=== PATIENT | female | born 1960 | race Caucasian/White ===

== ENCOUNTER 2023-03-11 14:29 | Inpatient (IN) | payer BC, OTHER ==
[2023-03-11 15:11] LABS: #Eosinphils 0.1 10x3/uL (0.0-0.5); #Monocytes 1.1 10x3/uL (0.0-1.1); #Neutrophils 9.5 10x3/uL (1.5-8.4); %Basophils 0.3 % (0.0-2.0); %Eosinophils 0.5 % (0.0-6.0); %Lymphocytes 7.8 % (18.0-47.0); %Monocytes 9.1 % (0.0-10.0); %Neutrophils 81.9 % (40.0-75.0); Hemoglobin 8.8 g/dL (12.0-15.5); Mean Corpuscular HGB CONC 32.6 g/dL (32.0-36.0); Mean Corpuscular Hemoglobin 29.5 pg (27.0-33.0); Mean Corpuscular Volume 90.6 fl (81.6-98.3); Mean Platelet Volume 10.5 fl (7.4-10.4); Platelet Count 280 10x3/uL (150-450); RBC Distribution Width 14.3 % (11.5-14.5); Red Blood Cell (RBC) Count 2.98 10x6/uL (3.90-5.03); White Blood Cell (WBC) Count 11.6 10x3/uL (3.5-10.5)
[2023-03-11 15:14] LABS: ALT (SGPT) 10 U/L (8-55); AST (SGOT) 29 U/L (5-34); Alkaline Phosphatase 65 U/L (40-110); Anion Gap 17 mmol/L (10-20); BUN (Urea Nitrogen) 16 mg/dL (9.8-20.1); Bilirubin, Total 0.7 mg/dL (0.2-1.2); Calc. Creatinine Clearance 0 mL/min (70-130); Carbon Dioxide 28 mmol/L (23-31); Chloride 96 mmol/L (98-107); Estimated GFR 65; Globulin 2.3 g/dL (2.4-3.5); Glucose 101 mg/dL (80-115); Protein, Total 5.3 g/dL (5.8-8.1); Sodium 138 mmol/L (136-145)
[2023-03-11] MEDS ORDERED: CEFAZOLIN 1 GM VIAL ONE (16:39)
[2023-03-11] MEDS ORDERED: Acetaminophen 325 MG TAB PO PRN (19:28)
[2023-03-11] MEDS ORDERED: Ondansetron PF 4 MG/2 ML Vial IVP PRN (19:28)
[2023-03-11] MEDS ORDERED: NS 0.9% w/ 40 MEQ KCL 1,000 ML IV SCH (19:30)
[2023-03-11] MEDS ORDERED: Electrolyte Replacement Protocol FS SCH (19:30)
[2023-03-11] MEDS ORDERED: Potassium Chloride 20 MEQ TAB PO SCH (20:30)
[2023-03-11] MEDS ORDERED: Potassium Chloride 20 MEQ TAB ONE (22:45)
[2023-03-11] MEDS ORDERED: NS 0.9% w/ 40 MEQ KCL 1,000 ML IV ONE (22:46)
[2023-03-11] MEDS: Nystatin Powder 15 GM BOT TOP SCH (23:00)
[2023-03-11] MEDS: Cefepime 2 GM in Sodium Chloride 0.9% 100 ML IVPB SCH (23:40)
[2023-03-12 05:50] LABS: #Basophils 0.1 10x3/uL (0.0-0.2); #Eosinphils 0.2 10x3/uL (0.0-0.5); #Monocytes 0.7 10x3/uL (0.0-1.1); #Neutrophils 6.2 10x3/uL (1.5-8.4); %Basophils 0.6 % (0.0-2.0); %Eosinophils 2.4 % (0.0-6.0); %Lymphocytes 14.7 % (18.0-47.0); %Monocytes 8.4 % (0.0-10.0); %Neutrophils 73.4 % (40.0-75.0); Hemoglobin 9.5 g/dL (12.0-15.5); Mean Corpuscular HGB CONC 31.8 g/dL (32.0-36.0); Mean Corpuscular Hemoglobin 29.5 pg (27.0-33.0); Mean Corpuscular Volume 92.9 fl (81.6-98.3); Mean Platelet Volume 10.2 fl (7.4-10.4); Platelet Count 249 10x3/uL (150-450); RBC Distribution Width 14.5 % (11.5-14.5); Red Blood Cell (RBC) Count 3.22 10x6/uL (3.90-5.03); White Blood Cell (WBC) Count 8.4 10x3/uL (3.5-10.5)
[2023-03-12 05:56] LABS: Anion Gap 17 mmol/L (10-20); BUN (Urea Nitrogen) 13 mg/dL (9.8-20.1); Calc. Creatinine Clearance 0 mL/min (70-130); Calcium 8.3 mg/dL (7.8-10.44); Carbon Dioxide 26 mmol/L (23-31); Chloride 102 mmol/L (98-107); Estimated GFR 85; Glucose 80 mg/dL (80-115); Magnesium 2.1 mg/dL (1.6-2.6); Potassium 3.8 mmol/L (3.5-5.1); Sodium 141 mmol/L (136-145)
[2023-03-12 06:13] LABS: Iron 26 ug/dL (50-170); Iron Binding Capacity, Total 126 mcg/dL (265-497)
[2023-03-12 06:15] LABS: Ferritin 606.11 ng/mL (10-291); Thyroid Stimulating Hormone 1.5122 uIU/mL (0.35-4.94)
[2023-03-12] MEDS: Nystatin Powder 15 GM BOT TOP SCH (09:00)
[2023-03-12] MEDS ORDERED: Cefepime 2 GM VIAL ONE (09:30)
[2023-03-12] MEDS: Cefepime 2 GM in Sodium Chloride 0.9% 100 ML IVPB SCH ×2 (09:45→21:54)
[2023-03-12] MEDS ORDERED: VANCOMYCIN 1.75 GM/350 ML BAG 1.75 GM in Premix Bag 1 BAG IVPB SCH (23:00)
[2023-03-13 04:34] LABS: #Eosinphils 0.2 10x3/uL (0.0-0.5); #Monocytes 0.7 10x3/uL (0.0-1.1); #Neutrophils 4.8 10x3/uL (1.5-8.4); %Basophils 0.4 % (0.0-2.0); %Eosinophils 2.6 % (0.0-6.0); %Monocytes 9.5 % (0.0-10.0); %Neutrophils 71.2 % (40.0-75.0); Hemoglobin 8.5 g/dL (12.0-15.5); Mean Corpuscular Hemoglobin 29.3 pg (27.0-33.0); Mean Corpuscular Volume 91.7 fl (81.6-98.3); Mean Platelet Volume 10.4 fl (7.4-10.4); Platelet Count 236 10x3/uL (150-450); RBC Distribution Width 14.5 % (11.5-14.5); White Blood Cell (WBC) Count 6.8 10x3/uL (3.5-10.5)
[2023-03-13 04:44] LABS: Anion Gap 14 mmol/L (10-20); BUN (Urea Nitrogen) 10 mg/dL (9.8-20.1); Calc. Creatinine Clearance 137 mL/min (70-130); Carbon Dioxide 27 mmol/L (23-31); Chloride 104 mmol/L (98-107); Sodium 141 mmol/L (136-145)
[2023-03-13 04:45] LABS: ALT (SGPT) 7 U/L (8-55); AST (SGOT) 15 U/L (5-34); Albumin 2.3 g/dL (3.4-4.8); Alkaline Phosphatase 50 U/L (40-110); Bilirubin, Total 0.3 mg/dL (0.2-1.2); Calcium 7.9 mg/dL (7.8-10.44); Estimated GFR 97; Globulin 2.4 g/dL (2.4-3.5); Glucose 91 mg/dL (80-115); Protein, Total 4.7 g/dL (5.8-8.1)
[2023-03-13] MEDS ORDERED: Fluconazole In NaCl,Iso-Osm 100 MG in Admixture Fee 1 EACH IVPB SCH (09:00)
[2023-03-13] MEDS ORDERED: Fluconazole 100 MG TAB PO SCH (09:00)
[2023-03-13] MEDS: Cefepime 2 GM in Sodium Chloride 0.9% 100 ML IVPB SCH ×2 (09:07→23:36)
[2023-03-13] MEDS: Nystatin Powder 15 GM BOT TOP SCH (10:07)
[2023-03-13] MEDS: Vancomycin HCl 1 GM in Sodium Chloride 0.9% 250 ML 250 ML IVPB SCH ×2 (11:08→23:35)
[2023-03-13] MEDS: traMADol HCl 50 MG TAB PO PRN (11:35)
[2023-03-13] MEDS ORDERED: Nystatin Powder 15 GM BOT TOP PRN (14:31)
[2023-03-14] MEDS: Nystatin Powder 15 GM BOT TOP SCH ×3 (00:36→13:35)
[2023-03-14 05:02] LABS: #Eosinphils 0.3 10x3/uL (0.0-0.5); #Monocytes 0.8 10x3/uL (0.0-1.1); #Neutrophils 4.2 10x3/uL (1.5-8.4); %Basophils 0.4 % (0.0-2.0); %Eosinophils 4.2 % (0.0-6.0); %Lymphocytes 20.2 % (18.0-47.0); %Monocytes 11.2 % (0.0-10.0); %Neutrophils 63.7 % (40.0-75.0); Hemoglobin 8.5 g/dL (12.0-15.5); Mean Corpuscular HGB CONC 31.1 g/dL (32.0-36.0); Mean Corpuscular Hemoglobin 28.9 pg (27.0-33.0); Mean Corpuscular Volume 92.9 fl (81.6-98.3); Platelet Count 222 10x3/uL (150-450); RBC Distribution Width 14.4 % (11.5-14.5); Red Blood Cell (RBC) Count 2.94 10x6/uL (3.90-5.03); White Blood Cell (WBC) Count 6.7 10x3/uL (3.5-10.5)
[2023-03-14 05:10] LABS: ALT (SGPT) Less than 6 U/L (8-55); AST (SGOT) 14 U/L (5-34); Albumin 2.3 g/dL (3.4-4.8); Alkaline Phosphatase 46 U/L (40-110); Anion Gap 11 mmol/L (10-20); BUN (Urea Nitrogen) 8 mg/dL (9.8-20.1); Bilirubin, Total 0.2 mg/dL (0.2-1.2); Calc. Creatinine Clearance 147 mL/min (70-130); Calcium 7.8 mg/dL (7.8-10.44); Carbon Dioxide 30 mmol/L (23-31); Chloride 103 mmol/L (98-107); Estimated GFR 99; Globulin 2.2 g/dL (2.4-3.5); Glucose 95 mg/dL (80-115); Potassium 4.1 mmol/L (3.5-5.1); Protein, Total 4.5 g/dL (5.8-8.1); Sodium 140 mmol/L (136-145)
[2023-03-14] MEDS ORDERED: Lactated Ringer's 1,000 ML IV SCH (07:00)
[2023-03-14] MEDS: Cefepime 2 GM in Sodium Chloride 0.9% 100 ML IVPB SCH (09:06)
[2023-03-14] MEDS ORDERED: Fentanyl 100 MCG/2 ML VIAL ONE ×2 (09:39→10:12)
[2023-03-14] MEDS ORDERED: PROPOFOL 20 ML ONE (09:39)
[2023-03-14] MEDS ORDERED: Rocuronium Bromide 10 MG/ML (10ML VIAL) ONE (10:11)
[2023-03-14] MEDS ORDERED: Ondansetron PF 4 MG/2 ML Vial ONE (10:11)
[2023-03-14] MEDS ORDERED: PHENYLEPHRINE-NS 100 MCG/ML 10 ML SYRINGE ONE (10:20)
[2023-03-14] MEDS: Vancomycin HCl 1 GM in Sodium Chloride 0.9% 250 ML 250 ML IVPB SCH (13:00)
[2023-03-14 13:22] LABS: Vancomycin, Trough 23.7 ug/mL
[2023-03-14] MEDS: traMADol HCl 50 MG TAB PO PRN ×2 (13:33→20:35)
[2023-03-14] MEDS ORDERED: HYDROcodone/Acetaminophen 5/325 mg Tablet PO SCH (15:00)
[2023-03-14] MEDS: Gabapentin 100 MG CAP PO SCH (15:13)
[2023-03-14] MEDS: Cephalexin 500 MG CAP PO SCH (19:55)
[2023-03-14] MEDS: Gabapentin 300 MG CAP PO SCH (20:34)
[2023-03-15] MEDS: Cephalexin 500 MG CAP PO SCH ×5 (00:06→23:31)
[2023-03-15] MEDS: Nystatin Powder 15 GM BOT TOP SCH ×3 (00:07→21:52)
[2023-03-15 05:36] LABS: #Monocytes 0.5 10x3/uL (0.0-1.1); %Basophils 0.1 % (0.0-2.0); %Eosinophils 0.1 % (0.0-6.0); %Lymphocytes 12.1 % (18.0-47.0); %Monocytes 6.9 % (0.0-10.0); Mean Corpuscular HGB CONC 31.8 g/dL (32.0-36.0); Mean Corpuscular Hemoglobin 28.7 pg (27.0-33.0); Mean Corpuscular Volume 90.1 fl (81.6-98.3); Mean Platelet Volume 10.7 fl (7.4-10.4); Platelet Count 257 10x3/uL (150-450); RBC Distribution Width 13.8 % (11.5-14.5); Red Blood Cell (RBC) Count 3.14 10x6/uL (3.90-5.03); White Blood Cell (WBC) Count 7.5 10x3/uL (3.5-10.5)
[2023-03-15 05:50] LABS: ALT (SGPT) Less than 6 U/L (8-55); AST (SGOT) 12 U/L (5-34); Albumin 2.4 g/dL (3.4-4.8); Alkaline Phosphatase 46 U/L (40-110); Anion Gap 14 mmol/L (10-20); BUN (Urea Nitrogen) 10 mg/dL (9.8-20.1); Bilirubin, Total 0.2 mg/dL (0.2-1.2); Calc. Creatinine Clearance 154 mL/min (70-130); Calcium 7.9 mg/dL (7.8-10.44); Carbon Dioxide 28 mmol/L (23-31); Chloride 99 mmol/L (98-107); Estimated GFR 100; Globulin 2.3 g/dL (2.4-3.5); Glucose 95 mg/dL (80-115); Potassium 4.5 mmol/L (3.5-5.1); Protein, Total 4.7 g/dL (5.8-8.1); Sodium 136 mmol/L (136-145)
[2023-03-15] MEDS: Gabapentin 100 MG CAP PO SCH ×2 (09:57→16:57)
[2023-03-15 12:16] LABS: Hemoglobin A1c 5.4 % (4.0-6.0)
[2023-03-15] MEDS ORDERED: Ipratropium/Albuterol 3 ML NEB NEB PRN (13:16)
[2023-03-15] MEDS: Gabapentin 300 MG CAP PO SCH (21:51)
[2023-03-16] MEDS: Cephalexin 500 MG CAP PO SCH (05:37)
[2023-03-16] MEDS: traMADol HCl 50 MG TAB PO PRN (05:51)
[2023-03-16 05:52] LABS: #Eosinphils 0.2 10x3/uL (0.0-0.5); #Monocytes 0.6 10x3/uL (0.0-1.1); #Neutrophils 4.6 10x3/uL (1.5-8.4); %Basophils 0.5 % (0.0-2.0); %Lymphocytes 18.2 % (18.0-47.0); %Monocytes 9.3 % (0.0-10.0); %Neutrophils 68.5 % (40.0-75.0); Hemoglobin 9.1 g/dL (12.0-15.5); Mean Corpuscular HGB CONC 31.6 g/dL (32.0-36.0); Mean Corpuscular Hemoglobin 28.8 pg (27.0-33.0); Mean Corpuscular Volume 91.1 fl (81.6-98.3); Mean Platelet Volume 10.3 fl (7.4-10.4); Platelet Count 253 10x3/uL (150-450); RBC Distribution Width 14.2 % (11.5-14.5); Red Blood Cell (RBC) Count 3.16 10x6/uL (3.90-5.03); White Blood Cell (WBC) Count 6.7 10x3/uL (3.5-10.5)
[2023-03-16 05:57] LABS: ALT (SGPT) Less than 6 U/L (8-55); AST (SGOT) 11 U/L (5-34); Albumin 2.4 g/dL (3.4-4.8); Alkaline Phosphatase 45 U/L (40-110); Anion Gap 10 mmol/L (10-20); BUN (Urea Nitrogen) 11 mg/dL (9.8-20.1); Bilirubin, Total 0.2 mg/dL (0.2-1.2); Calc. Creatinine Clearance 148 mL/min (70-130); Carbon Dioxide 31 mmol/L (23-31); Chloride 100 mmol/L (98-107); Estimated GFR 98; Globulin 2.2 g/dL (2.4-3.5); Glucose 89 mg/dL (80-115); Magnesium 1.9 mg/dL (1.6-2.6); Phosphorus 2.1 mg/dL (2.3-4.7); Potassium 4.1 mmol/L (3.5-5.1); Protein, Total 4.6 g/dL (5.8-8.1); Sodium 137 mmol/L (136-145)
[2023-03-16] MEDS: Ferrous Sulfate 325 MG TAB PO SCH (08:35)
[2023-03-16] MEDS: Gabapentin 100 MG CAP PO SCH ×2 (08:35→15:32)
[2023-03-16] MEDS: Nystatin Powder 15 GM BOT TOP SCH ×2 (08:36→21:10)
[2023-03-16] MEDS ORDERED: Magnesium 2 GM/50 ML(in water) 2 GM in Premix Bag 1 BAG IVPB SCH (09:00)
[2023-03-16] MEDS: Cefdinir 300 MG CAP PO SCH ×2 (10:01→21:09)
[2023-03-16] MEDS: Gabapentin 300 MG CAP PO SCH (21:09)
[2023-03-16] MEDS: Polyethylene Glycol 3350 17 GM Packet PO SCH (21:10)
[2023-03-17 04:38] LABS: #Eosinphils 0.2 10x3/uL (0.0-0.5); #Monocytes 0.7 10x3/uL (0.0-1.1); #Neutrophils 3.8 10x3/uL (1.5-8.4); %Basophils 0.3 % (0.0-2.0); %Eosinophils 2.9 % (0.0-6.0); %Lymphocytes 23.9 % (18.0-47.0); %Monocytes 11.5 % (0.0-10.0); %Neutrophils 60.4 % (40.0-75.0); Hemoglobin 9.5 g/dL (12.0-15.5); Mean Corpuscular HGB CONC 31.9 g/dL (32.0-36.0); Mean Corpuscular Volume 90.9 fl (81.6-98.3); Mean Platelet Volume 10.5 fl (7.4-10.4); Platelet Count 266 10x3/uL (150-450); RBC Distribution Width 14.4 % (11.5-14.5); Red Blood Cell (RBC) Count 3.28 10x6/uL (3.90-5.03); White Blood Cell (WBC) Count 6.2 10x3/uL (3.5-10.5)
[2023-03-17 05:03] LABS: ALT (SGPT) Less than 6 U/L (8-55); AST (SGOT) 12 U/L (5-34); Albumin 2.3 g/dL (3.4-4.8); Alkaline Phosphatase 52 U/L (40-110); Anion Gap 11 mmol/L (10-20); BUN (Urea Nitrogen) 8 mg/dL (9.8-20.1); Bilirubin, Total 0.2 mg/dL (0.2-1.2); Calc. Creatinine Clearance 162 mL/min (70-130); Carbon Dioxide 30 mmol/L (23-31); Chloride 101 mmol/L (98-107); Estimated GFR 100; Globulin 2.2 g/dL (2.4-3.5); Glucose 95 mg/dL (80-115); Magnesium 1.9 mg/dL (1.6-2.6); Potassium 4.2 mmol/L (3.5-5.1); Protein, Total 4.5 g/dL (5.8-8.1); Sodium 138 mmol/L (136-145)
[2023-03-17] MEDS: Ferrous Sulfate 325 MG TAB PO SCH (08:19)
[2023-03-17] MEDS: Polyethylene Glycol 3350 17 GM Packet PO SCH (08:19)
[2023-03-17] MEDS: Gabapentin 100 MG CAP PO SCH ×2 (08:19→15:42)
[2023-03-17] MEDS: Cefdinir 300 MG CAP PO SCH ×2 (08:19→21:21)
[2023-03-17] MEDS: Nystatin Powder 15 GM BOT TOP SCH ×2 (08:20→21:23)
[2023-03-17] MEDS ORDERED: Magnesium 2 GM/50 ML(in water) 2 GM in Premix Bag 1 BAG IVPB SCH (09:00)
[2023-03-17] MEDS ORDERED: Ketorolac Tromethamine 30 MG/ML VIAL IVP SCH (13:45)
[2023-03-17] MEDS: Gabapentin 300 MG CAP PO SCH (21:20)
[2023-03-18 05:01] LABS: #Eosinphils 0.2 10x3/uL (0.0-0.5); #Monocytes 0.8 10x3/uL (0.0-1.1); #Neutrophils 4.4 10x3/uL (1.5-8.4); %Basophils 0.4 % (0.0-2.0); %Eosinophils 2.7 % (0.0-6.0); %Lymphocytes 22.7 % (18.0-47.0); %Neutrophils 62.1 % (40.0-75.0); Hemoglobin 9.4 g/dL (12.0-15.5); Mean Corpuscular HGB CONC 32.1 g/dL (32.0-36.0); Mean Corpuscular Hemoglobin 29.1 pg (27.0-33.0); Mean Corpuscular Volume 90.7 fl (81.6-98.3); Mean Platelet Volume 10.3 fl (7.4-10.4); Platelet Count 245 10x3/uL (150-450); RBC Distribution Width 14.6 % (11.5-14.5); Red Blood Cell (RBC) Count 3.23 10x6/uL (3.90-5.03); White Blood Cell (WBC) Count 7.1 10x3/uL (3.5-10.5)
[2023-03-18 05:08] LABS: ALT (SGPT) 9 U/L (8-55); AST (SGOT) 18 U/L (5-34); Albumin 2.4 g/dL (3.4-4.8); Alkaline Phosphatase 61 U/L (40-110); Anion Gap 12 mmol/L (10-20); BUN (Urea Nitrogen) 7 mg/dL (9.8-20.1); Bilirubin, Total 0.2 mg/dL (0.2-1.2); Calc. Creatinine Clearance 157 mL/min (70-130); Calcium 8.2 mg/dL (7.8-10.44); Carbon Dioxide 30 mmol/L (23-31); Chloride 101 mmol/L (98-107); Estimated GFR 99; Globulin 2.3 g/dL (2.4-3.5); Glucose 101 mg/dL (80-115); Potassium 4.6 mmol/L (3.5-5.1); Protein, Total 4.7 g/dL (5.8-8.1); Sodium 138 mmol/L (136-145)
[2023-03-18] MEDS: Cefdinir 300 MG CAP PO SCH ×2 (08:57→20:22)
[2023-03-18] MEDS: Gabapentin 100 MG CAP PO SCH ×2 (08:57→15:05)
[2023-03-18] MEDS: Ferrous Sulfate 325 MG TAB PO SCH (08:57)
[2023-03-18] MEDS: Nystatin Powder 15 GM BOT TOP SCH ×2 (08:59→22:26)
[2023-03-18] MEDS ORDERED: Magnesium 2 GM/50 ML(in water) 2 GM in Premix Bag 1 BAG IVPB SCH (09:00)
[2023-03-18] MEDS: traMADol HCl 50 MG TAB PO PRN ×2 (15:05→20:26)
[2023-03-18] MEDS: Gabapentin 300 MG CAP PO SCH (20:22)
[2023-03-18] MEDS: Senokot S 8.6-50 MG TAB PO SCH (20:24)
[2023-03-19 05:07] LABS: Magnesium 2.2 mg/dL (1.6-2.6)
[2023-03-19] MEDS: Senokot S 8.6-50 MG TAB PO SCH ×2 (09:06→21:55)
[2023-03-19] MEDS: traMADol HCl 50 MG TAB PO PRN (09:06)
[2023-03-19] MEDS: Gabapentin 100 MG CAP PO SCH ×2 (09:06→15:56)
[2023-03-19] MEDS: Cefdinir 300 MG CAP PO SCH ×2 (09:06→21:54)
[2023-03-19] MEDS: Ferrous Sulfate 325 MG TAB PO SCH (09:06)
[2023-03-19] MEDS: Nystatin Powder 15 GM BOT TOP SCH ×2 (09:55→21:54)
[2023-03-19] MEDS: Morphine 2 MG/ML VIAL SLOW IVP PRN (13:55)
[2023-03-19] MEDS: Gabapentin 300 MG CAP PO SCH (21:53)
[2023-03-20 04:51] LABS: Anion Gap 11 mmol/L (10-20); BUN (Urea Nitrogen) 11 mg/dL (9.8-20.1); Calc. Creatinine Clearance 160 mL/min (70-130); Carbon Dioxide 31 mmol/L (23-31); Chloride 100 mmol/L (98-107); Estimated GFR 100; Glucose 101 mg/dL (80-115); Potassium 4.5 mmol/L (3.5-5.1); Sodium 137 mmol/L (136-145)
[2023-03-20 05:18] LABS: #Eosinphils 0.1 10x3/uL (0.0-0.5); #Monocytes 0.9 10x3/uL (0.0-1.1); #Neutrophils 4.1 10x3/uL (1.5-8.4); %Basophils 0.5 % (0.0-2.0); %Lymphocytes 21.6 % (18.0-47.0); %Monocytes 13.2 % (0.0-10.0); %Neutrophils 62.1 % (40.0-75.0); Hemoglobin 8.4 g/dL (12.0-15.5); Mean Corpuscular HGB CONC 31.9 g/dL (32.0-36.0); Mean Corpuscular Hemoglobin 28.8 pg (27.0-33.0); Mean Corpuscular Volume 90.1 fl (81.6-98.3); Mean Platelet Volume 10.5 fl (7.4-10.4); Platelet Count 209 10x3/uL (150-450); RBC Distribution Width 15.2 % (11.5-14.5); Red Blood Cell (RBC) Count 2.92 10x6/uL (3.90-5.03); White Blood Cell (WBC) Count 6.5 10x3/uL (3.5-10.5)
[2023-03-20] MEDS: Gabapentin 100 MG CAP PO SCH ×2 (07:54→15:40)
[2023-03-20] MEDS: Ferrous Sulfate 325 MG TAB PO SCH (07:54)
[2023-03-20] MEDS: Cefdinir 300 MG CAP PO SCH ×2 (07:54→20:52)
[2023-03-20] MEDS: Nystatin Powder 15 GM BOT TOP SCH ×2 (07:55→20:53)
[2023-03-20] MEDS: Senokot S 8.6-50 MG TAB PO SCH ×2 (07:55→20:58)
[2023-03-20] MEDS: Gabapentin 300 MG CAP PO SCH (20:52)
[2023-03-21 03:50] LABS: #Eosinphils 0.2 10x3/uL (0.0-0.5); #Monocytes 0.9 10x3/uL (0.0-1.1); #Neutrophils 4.9 10x3/uL (1.5-8.4); %Basophils 0.4 % (0.0-2.0); %Eosinophils 2.2 % (0.0-6.0); %Lymphocytes 18.9 % (18.0-47.0); %Monocytes 11.6 % (0.0-10.0); %Neutrophils 66.4 % (40.0-75.0); Hemoglobin 8.8 g/dL (12.0-15.5); Mean Corpuscular HGB CONC 31.9 g/dL (32.0-36.0); Mean Corpuscular Hemoglobin 28.9 pg (27.0-33.0); Mean Corpuscular Volume 90.8 fl (81.6-98.3); Mean Platelet Volume 10.5 fl (7.4-10.4); Platelet Count 226 10x3/uL (150-450); RBC Distribution Width 15.1 % (11.5-14.5); Red Blood Cell (RBC) Count 3.04 10x6/uL (3.90-5.03); White Blood Cell (WBC) Count 7.4 10x3/uL (3.5-10.5)
[2023-03-21 03:55] LABS: Anion Gap 11 mmol/L (10-20); BUN (Urea Nitrogen) 8 mg/dL (9.8-20.1); Calc. Creatinine Clearance 158 mL/min (70-130); Calcium 8.3 mg/dL (7.8-10.44); Carbon Dioxide 31 mmol/L (23-31); Chloride 100 mmol/L (98-107); Estimated GFR 100; Glucose 97 mg/dL (80-115); Potassium 4.1 mmol/L (3.5-5.1); Sodium 138 mmol/L (136-145)
[2023-03-21] MEDS: Cefdinir 300 MG CAP PO SCH ×2 (09:59→22:07)
[2023-03-21] MEDS: Gabapentin 100 MG CAP PO SCH ×2 (09:59→17:07)
[2023-03-21] MEDS: Ferrous Sulfate 325 MG TAB PO SCH (09:59)
[2023-03-21] MEDS: Senokot S 8.6-50 MG TAB PO SCH ×2 (10:02→22:07)
[2023-03-21] MEDS: Nystatin Powder 15 GM BOT TOP SCH ×2 (10:17→22:07)
[2023-03-21] MEDS: Morphine 2 MG/ML VIAL SLOW IVP PRN (11:26)
[2023-03-21] MEDS: Gabapentin 300 MG CAP PO SCH (22:06)
[2023-03-22 04:27] LABS: Anion Gap 10 mmol/L (10-20); BUN (Urea Nitrogen) 11 mg/dL (9.8-20.1); Calc. Creatinine Clearance 163 mL/min (70-130); Calcium 8.4 mg/dL (7.8-10.44); Carbon Dioxide 30 mmol/L (23-31); Chloride 101 mmol/L (98-107); Estimated GFR 100; Glucose 96 mg/dL (80-115); Potassium 4.4 mmol/L (3.5-5.1); Sodium 137 mmol/L (136-145)
[2023-03-22 04:39] LABS: #Eosinphils 0.2 10x3/uL (0.0-0.5); #Monocytes 0.9 10x3/uL (0.0-1.1); #Neutrophils 4.6 10x3/uL (1.5-8.4); %Basophils 0.3 % (0.0-2.0); %Lymphocytes 19.9 % (18.0-47.0); %Monocytes 12.8 % (0.0-10.0); %Neutrophils 63.6 % (40.0-75.0); Hemoglobin 8.7 g/dL (12.0-15.5); Mean Corpuscular Hemoglobin 29.2 pg (27.0-33.0); Mean Corpuscular Volume 91.3 fl (81.6-98.3); Mean Platelet Volume 10.7 fl (7.4-10.4); Platelet Count 213 10x3/uL (150-450); Red Blood Cell (RBC) Count 2.98 10x6/uL (3.90-5.03); White Blood Cell (WBC) Count 7.2 10x3/uL (3.5-10.5)
[2023-03-22 05:53] VITALS: BMI 52.7
[2023-03-22] MEDS: Gabapentin 100 MG CAP PO SCH ×2 (10:00→15:50)
[2023-03-22] MEDS: Cefdinir 300 MG CAP PO SCH ×2 (10:00→21:49)
[2023-03-22] MEDS: Ferrous Sulfate 325 MG TAB PO SCH (10:00)
[2023-03-22] MEDS: Senokot S 8.6-50 MG TAB PO SCH ×2 (10:01→21:49)
[2023-03-22] MEDS: Nystatin Powder 15 GM BOT TOP SCH ×2 (10:01→21:49)
[2023-03-22] MEDS: Gabapentin 300 MG CAP PO SCH (21:49)
[2023-03-23 03:50] LABS: Anion Gap 11 mmol/L (10-20); BUN (Urea Nitrogen) 20 mg/dL (9.8-20.1); Calc. Creatinine Clearance 150 mL/min (70-130); Calcium 8.7 mg/dL (7.8-10.44); Carbon Dioxide 31 mmol/L (23-31); Chloride 100 mmol/L (98-107); Estimated GFR 98; Glucose 99 mg/dL (80-115); Potassium 4.3 mmol/L (3.5-5.1); Sodium 138 mmol/L (136-145)
[2023-03-23 03:56] LABS: #Eosinphils 0.2 10x3/uL (0.0-0.5); #Monocytes 0.9 10x3/uL (0.0-1.1); #Neutrophils 4.8 10x3/uL (1.5-8.4); %Basophils 0.3 % (0.0-2.0); %Eosinophils 2.8 % (0.0-6.0); %Lymphocytes 19.8 % (18.0-47.0); %Monocytes 11.9 % (0.0-10.0); %Neutrophils 64.7 % (40.0-75.0); Hemoglobin 8.7 g/dL (12.0-15.5); Mean Corpuscular HGB CONC 31.9 g/dL (32.0-36.0); Mean Corpuscular Hemoglobin 28.9 pg (27.0-33.0); Mean Corpuscular Volume 90.7 fl (81.6-98.3); Mean Platelet Volume 10.5 fl (7.4-10.4); Platelet Count 226 10x3/uL (150-450); Red Blood Cell (RBC) Count 3.01 10x6/uL (3.90-5.03); White Blood Cell (WBC) Count 7.4 10x3/uL (3.5-10.5)
[2023-03-23] MEDS: Gabapentin 100 MG CAP PO SCH ×2 (08:58→17:27)
[2023-03-23] MEDS: Cefdinir 300 MG CAP PO SCH ×2 (08:58→21:17)
[2023-03-23] MEDS: Ferrous Sulfate 325 MG TAB PO SCH (08:59)
[2023-03-23] MEDS: Senokot S 8.6-50 MG TAB PO SCH (09:00)
[2023-03-23] MEDS: Nystatin Powder 15 GM BOT TOP SCH ×2 (09:13→21:18)
[2023-03-23] MEDS: traMADol HCl 50 MG TAB PO PRN (13:07)
[2023-03-23] MEDS: Gabapentin 300 MG CAP PO SCH (21:17)
[2023-03-24 04:04] LABS: #Eosinphils 0.2 10x3/uL (0.0-0.5); #Monocytes 0.8 10x3/uL (0.0-1.1); #Neutrophils 4.1 10x3/uL (1.5-8.4); %Basophils 0.5 % (0.0-2.0); %Eosinophils 3.1 % (0.0-6.0); %Lymphocytes 21.2 % (18.0-47.0); %Monocytes 11.7 % (0.0-10.0); Hemoglobin 7.8 g/dL (12.0-15.5); Mean Corpuscular Volume 90.7 fl (81.6-98.3); Mean Platelet Volume 10.8 fl (7.4-10.4); Platelet Count 228 10x3/uL (150-450); RBC Distribution Width 15.1 % (11.5-14.5); Red Blood Cell (RBC) Count 2.69 10x6/uL (3.90-5.03); White Blood Cell (WBC) Count 6.5 10x3/uL (3.5-10.5)
[2023-03-24 04:06] LABS: Anion Gap 11 mmol/L (10-20); BUN (Urea Nitrogen) 18 mg/dL (9.8-20.1); Calc. Creatinine Clearance 150 mL/min (70-130); Calcium 8.6 mg/dL (7.8-10.44); Carbon Dioxide 30 mmol/L (23-31); Chloride 100 mmol/L (98-107); Estimated GFR 98; Glucose 94 mg/dL (80-115); Potassium 4.2 mmol/L (3.5-5.1); Sodium 137 mmol/L (136-145)
[2023-03-24] MEDS: Gabapentin 100 MG CAP PO SCH (08:37)
[2023-03-24] MEDS: Cefdinir 300 MG CAP PO SCH (08:37)
[2023-03-24] MEDS: Nystatin Powder 15 GM BOT TOP SCH (08:37)
[2023-03-24] MEDS: Ferrous Sulfate 325 MG TAB PO SCH (08:37)
[2023-03-24 12:13] VITALS: BP 110/51; TEMP 98.1
[2023-03-24] MEDS: Morphine 2 MG/ML VIAL SLOW IVP PRN (13:30)
== END 2023-03-24 15:57 | DRG 579 ==
LOC: CSHERS 14:29 → CSHERHOLD 21:27 → CSHTELE 03-12 10:34
PROVIDERS: ADMIT Family Medicine; ATTEND Internal Medicine
PROC: 0Y6N0ZF Detachment at Left Foot, Partial 5th Ray, Open Approach (ICD-10-PCS; principal; 2023-03-14)
DX: L03.116 Cellulitis of left lower limb (principal); I50.33 Acute on chronic diastolic (congestive) heart failure; J96.01 Acute respiratory failure with hypoxia; L03.317 Cellulitis of buttock; Z68.43 Body mass index [BMI] 50.0-59.9, adult; L03.115 Cellulitis of right lower limb; E66.01 Morbid (severe) obesity due to excess calories; D64.9 Anemia, unspecified; K21.9 Gastro-esophageal reflux disease without esophagitis; E86.0 Dehydration; G89.29 Other chronic pain; E87.6 Hypokalemia; Z60.2 Problems related to living alone; M10.9 Gout, unspecified; E88.81 Metabolic syndrome and other insulin resistance; G47.33 Obstructive sleep apnea (adult) (pediatric); B37.2 Candidiasis of skin and nail; L97.529 Non-pressure chronic ulcer of other part of left foot with unspecified severity; Z91.030 Bee allergy status; Z90.710 Acquired absence of both cervix and uterus; Z83.3 Family history of diabetes mellitus; R19.7 Diarrhea, unspecified
CPT/HCPCS: 36415; 71045; 80048; 80053; 80202; 82607; 82728; 83036; 83540; 83550; 83605; 83735; 83880; 84100; 84145; 84443; 85025; 86140; 87040; 87070; 87077; 87186; 87205; 88305; 88311; 93306; 94660; 94760; 94762; 96361; 96365; 97139; J0690; J0692; J1650; J1885; J2272; J2405; J2704; J3010; J3370; J3475; J3480; J3490; J7050; J7120